=== PATIENT | male | born 2000 ===

== ENCOUNTER → 2023-08-19 | Emergency (ER) | payer BC ==
[~2023-08-19] MED LIST: FAMOTIDINE 20 MG/2 ML VIAL IV ONE; LIDOCAINE VISCOUS 2% 10ML ORAL SOLN ONE; MAGNES/ALUMIN/SIMET 30ML UCUP ONE; NA CHLORIDE 0.9% 1,000 ML ONE; ONDANSETRON 4 MG/2 ML VIAL ONE; PANTOPRAZOLE 40 MG INJ ONE
--- OUTSIDE RECORDS SUMMARY | 2023-08-19 05:47 | XMS REPORT | Continuity of Care Document ---
Author Name Unknown Address [address] [facility] [address] [place] [address] [facility] thconnect Address [address] [facility] [address] [place] [address] Care Team Providers [employer] Name Role Phone Omkar Mcfadden Attending Clinician Unavailable Payers Payer Name Policy Type Policy Number Effective Date Expirati on Date Source [facility] 6 [id number] [facility] Problems Condition Name Condition Details Condition Category Status Onset Date Resolution Date Last Treatment Date Treating Clinician Comments Source [id number] Medical history non-contri butory Problem [facility] [id number] Folliculit is Problem [facility] [id number] GERD without esophagiti s Problem [facility] [id number] Mixed hyperlipid emia Problem [facility] Social History Social Habit Start Date Stop Date Quantity Comments Source History of Tobacco Use [facility] Sex Assigned At [facility] Smoking Status Start Date Stop Date Source Never Smoker [facility] Medications Ordered Medication Name Filled Medication Name Start Date Stop Date Current Medication? Ordering Clinician Indication Dosage Frequency Signature (SIG) Comments Components Source xRocephin 1 gm xRocephin 1 gm 2018-09-29 00:00: 00 No 1g [facility] xRocephin 1 gm xRocephin 1 gm 09-29 00:00: 00 No 1g [facility] xRocephin 1 gm xRocephin 1 gm 2019-0 09-29 00:00: 00 No 1g [facility] Multivitami n Multivitami n No Multivitam in Multivitami n Multivitami n No Multivitam in Multivitami n Multivitami n No Multivitam in Vital Signs Vital Name Observation Time Observation Value Comments S sasha height 2023-01-04 13:10:00 72.5 [in_i] Comm on [facility] weight 2023-01-04 13:10:00 202.6 [lb_av] Co mmon [facility] temperature 2023-01-04 13:10:00 97.4 [degF] Com [facility] bmi 2023-01-04 13:10:00 27.1 kg/m2 Commo n [facility] oximetry 2023-01-04 13:10:00 98 % Commo n [facility] respiratory rate 2023-01-04 13:10:00 16 /min [facility] blood pressure systolic 2023-01-04 13:10:00 126 mm[Hg] [facility] blood pressure diastolic 2023-01-04 13:10:00 80 mm[Hg] [facility] height 2022-12-05 15:00:00 72.5 [in_i] Comm on [facility] weight 2022-12-05 15:00:00 206.3 [lb_av] Co mmon [facility] temperature 2022-12-05 15:00:00 98.0 [degF] Com [facility] bmi 2022-12-05 15:00:00 27.59 kg/m2 Comm on [facility] oximetry 2022-12-05 15:00:00 98 % Commo n [facility] respiratory rate 2022-12-05 15:00:00 18 /min [facility] blood pressure systolic 2022-12-05 15:00:00 115 mm[Hg] [facility] blood pressure diastolic 2022-12-05 15:00:00 65 mm[Hg] [facility] Encounters Start Date/Time End Date/Time Encounter Type Admission Type Attending [facility] Care Facility Care Department Encounter ID Source 2023-01-02 11:13:01 Outpatient Omkar Mcfadden [facility] [id number] [facility] 2022-12-05 14:43:02 [facility] [id number] [facility] 2023-01-08 00:00:00 2023-01-08 00:00:00 (TEL) [facility] [id number] [facility] 2023-01-04 00:00:00 2023-01-04 00:00:00 OFFICE VISIT ESTAB PT LEVEL 3 [facility] [id number] [facility] 2022-12-05 00:00:00 2022-12-05 00:00:00 PREV VISIT NEW AGE 18-39 [facility] [id number] [facility] Results Test Description Test Time Test Comments Results Result Co mments Source CBC W/AUTO [id number] 00:00:00* Test Item Value Reference Range Interpretation Comme nts NUCLEATED RBCS (test code = 05899-7) 0.0 /100 WBC'S See_Comment [Automated messa [employer]imb[employer]] The system which generated this result transmitted reference range: 0.0 /100 WBC'S. The reference range was not used to interpret this result as normal/abnormal. ABSOLUTE EOSINOPHILS (test code = 07987-8) 0.31 K/UL See_Comment [Automated [employer]] The system which generated this result transmitted reference range: 0.00-0.50 K/UL. The reference range was not used to interpret this result as normal/abnormal. ABSOLUTE LYMPHOCYTES (test code = 96686-6) 2.27 K/UL See_Comment [Automated [employer]] The system which generated this result transmitted reference range: 1.00-4.00 K/UL. The reference range was not used to interpret this result as normal/abnormal. ABSOLUTE MONOCYTES (test code = 74906-3) 0.75 K/UL See_Comment [Automated messa ge] The system which generated this result transmitted reference range: 0.2-3.8 K/UL. The reference range was not used to interpret this result as normal/abnormal. ABSOLUTE NEUTROPHILS (test code = 47736-2) 2.97 K/UL See_Comment [Automated messa ge] The system which generated this result transmitted reference range: 1.50-7.50 K/UL. The reference range was not used to interpret this result as normal/abnormal. BASOPHILS (test code = 38892-0) 0.6 % EOSINOPHILS (test code = 05191-7) 4.9 % HEMATOCRIT (test code = 33005-4) 41.3 % See_Comment [Automated messa ge] The system which generated this result transmitted reference range: 40.0-51.0 %. The reference range was not used to interpret this result as normal/abnormal. HEMOGLOBIN (test code = 718-7) 13.6 G/DL See_Comment [Automated messa ge] The system which generated this result transmitted reference range: 13.5-17.0 G/DL. The reference range was not used to interpret this result as normal/abnormal. LYMPHOCYTES (test code = 41959-2) 35.7 % MCH (test code = 15018-5) 25.6 PG See_Comment [Automated messa ge] The system which generated this result transmitted reference range: 25.0-33.0 PG. The reference range was not used to interpret this result as normal/abnormal. MCHC (test code = 00207-2) 32.9 G/DL See_Comment [Automated messa ge] The system which generated this result transmitted reference range: 31.0-36.0 G/DL. The reference range was not used to interpret this result as normal/abnormal. MCV (test code = 88756-9) 77.8 fL See_Comment L [Automated messa ge] The system which generated this result transmitted reference range: 80.0-99.0 fL. The reference range was not used to interpret this result as normal/abnormal. MONOCYTES (test code = 07071-5) 11.8 % NEUTROPHILS (test code = 68193-9) 46.7 % PLATELET COUNT (test code = 74465-1) 301 K/UL See_Comment [Automated messa ge] The system which generated this result transmitted reference range: 130-400 K/UL. The reference range was not used to interpret this result as normal/abnormal. RBC (test code = 00407-4) 5.31 M/UL See_Comment [Automated messa ge] The system which generated this result transmitted reference range: 4.50-6.10 M/UL. The reference range was not used to interpret this result as normal/abnormal. RDW (test code = 79684-2) 13.5 % See_Comment [Automated messa ge] The system which generated this result transmitted reference range: 11.5-15.0 %. The reference range was not used to interpret this result as normal/abnormal. WBC (test code = 85766-8) 6.4 K/UL See_Comment [Automated messa ge] The system which generated this result transmitted reference range: 3.5-11.0 K/UL. The reference range was not used to interpret this result as normal/abnormal. HEMOGLOBIN [id number] 00:00:00* Test Item Value Reference Range Interpretation Comme nts HEMOGLOBIN A1c (test code = 4548-4) 5.4 % See_Comment [Automated messa ge] The system which generated this result transmitted reference range: 4.2-5.6 %. The reference range was not used to interpret this result as normal/abnormal. TSH REFLEX TO FREE [id number] 00:00:00* Test Item Value Reference Range Interpretation Comme nts TSH REFLEX TO FREE T4 (test code = 55634-1) 3.940 UIU/ML See_Comment [Automated messa ge] The system which generated this result transmitted reference range: 0.400-4.100 UIU/ML. The reference range was not used to interpret this result as normal/abnormal. UA, MICROSCOPIC, REFLEX TO [id number] 00:00:00* Test Item Value Reference Range Interpretation Comme nts APPEARANCE (test code = 5767-9) CLEAR CLEAR BACTERIA (test code = 50226-9) NONE SEEN NONE SEEN BILIRUBIN (test code = 5770-3) NEGATIVE NEGATIVE CASTS, HYALINE (test code = 25670-8) NONE SEEN NONE-TRACE COLOR (test code = 5778-6) YELLOW YELLOW-STRAW EPITHELIAL CELLS (test code = 35664-8) 0-5 /HPF See_Comment [Automated messa ge] The system which generated this result transmitted reference range: 0-5 /HPF. The reference range was not used to interpret this result as normal/abnormal. GLUCOSE (test code = 5792-7) NEGATIVE NEGATIVE KETONES (test code = 5797-6) NEGATIVE NEGATIVE LEUKOCYTE ESTERASE (test code = 5799-2) NEGATIVE NEGATIVE NITRITE (test code = 5802-4) NEGATIVE NEGATIVE OCCULT BLOOD (test code = 80430-6) NEGATIVE NEGATIVE pH (test code = 5803-2) 6.0 5.0-9.0 PROTEIN (test code = 88649-0) NEGATIVE NEGATIVE RED BLOOD CELLS (test code = 31865-8) 0-2 /HPF See_Comment [Automated messa ge] The system which generated this result transmitted reference range: 0-2 /HPF. The reference range was not used to interpret this result as normal/abnormal. SPECIFIC GRAVITY (test code = 5811-5) 1.007 1.005-1.035 UROBILINOGEN (test code = 78990-9) 0.2 MG/DL See_Comment [Automated messa ge] The system which generated this result transmitted reference range: <=2.0 MG/DL. The reference range was not used to interpret this result as normal/abnormal. WHITE BLOOD CELLS (test code = 05279-2) 0-5 /HPF See_Comment [Automated messa ge] The system which generated this result transmitted reference range: 0-5 /HPF. The reference range was not used to interpret this result as normal/abnormal. LIPID PANEL WITH REFLEX DIRECT [id number] 00:00:00* Test Item Value Reference Range Interpretation Comme nts CALC LDL CHOL (test code = 53506-3) 127 MG/DL See_Comment H [Automated messa ge] The system which generated this result transmitted reference range: <100 MG/DL. The reference range was not used to interpret this result as normal/abnormal. CHOLESTEROL (test code = 2093-3) 205 MG/DL See_Comment H [Automated messa ge] The system which generated this result transmitted reference range: <200 MG/DL. The reference range was not used to interpret this result as normal/abnormal. HDL CHOLESTEROL (test code = 2085-9) 34 MG/DL See_Comment L [Automated messa ge] The system which generated this result transmitted reference range: >39 MG/DL. The reference range was not used to interpret this result as normal/abnormal. RISK RATIO LDL/HDL (test code = 88750-3) 3.74 RATIO See_Comment H [Automated message] The system which generated this result transmitted reference range: <3.55 RATIO. The reference range was not used to interpret this result as normal/abnormal. TRIGLYCERIDES (test code = 2571-8) 309 MG/DL See_Comment H [Automated messa ge] The system which generated this result transmitted reference range: <150 MG/DL. The reference range was not used to interpret this result as normal/abnormal. COMPREHENSIVE METABOLIC [id number] 00:00:00* Test Item Value Reference Range Interpretation Comme nts ALBUMIN (test code = 1751-7) 4.5 G/DL See_Comment [Automated messa ge] The system which generated this result transmitted reference range: 3.5-5.2 G/DL. The reference range was not used to interpret this result as normal/abnormal. ALKALINE PHOSPHATASE (test code = 6768-6) 118 U/L See_Comment [Automated message] The system which generated this result transmitted reference range: 40-120 U/L. The reference range was not used to interpret this result as normal/abnormal. BILIRUBIN, TOTAL (test code = 1975-2) 0.3 MG/DL See_Comment [Automated message] The system which generated this result transmitted reference range: <=1.2 MG/DL. The reference range was not used to interpret this result as normal/abnormal. BUN (test code = 3094-0) 7 MG/DL See_Comment [Automated messa ge] The system which generated this result transmitted reference range: 6-20 MG/DL. The reference range was not used to interpret this result as normal/abnormal. CALCIUM (test code = 85062-1) 9.8 MG/DL See_Comment [Automated messa ge] The system which generated this result transmitted reference range: 8.5-10.5 MG/DL. The reference range was not used to interpret this result as normal/abnormal. CALC A/G RATIO (test code = 1759-0) 1.8 RATIO See_Comment [Automated messa ge] The system which generated this result transmitted reference range: 1.0-2.6 RATIO. The reference range was not used to interpret this result as normal/abnormal. CALC BUN/CREAT (test code = 3097-3) 7 RATIO See_Comment [Automated messa ge] The system which generated this result transmitted reference range: 6-28 RATIO. The reference range was not used to interpret this result as normal/abnormal. CALC GLOBULIN (test code = 63374-5) 2.5 G/DL See_Comment [Automated messa ge] The system which generated this result transmitted reference range: 1.9-3.7 G/DL. The reference range was not used to interpret this result as normal/abnormal. CARBON DIOXIDE (test code = 1963-8) 28 MEQ/L See_Comment [Automated messa ge] The system which generated this result transmitted reference range: 19-31 MEQ/L. The reference range was not used to interpret this result as normal/abnormal. CHLORIDE (test code = 2075-0) 102 MEQ/L See_Comment [Automated messa ge] The system which generated this result transmitted reference range: 95-107 MEQ/L. The reference range was not used to interpret this result as normal/abnormal. CREATININE (test code = 2160-0) 1.06 MG/DL See_Comment [Automated messa ge] The system which generated this result transmitted reference range: 0.80-1.40 MG/DL. The reference range was not used to interpret this result as normal/abnormal. eGFR (2020 CKD-EPI) (test code = 04026-7) 101 ML/MIN/1.73 See_Comment [Automated message] The system which generated this result transmitted reference range: >60 ML/MIN/1.73. The reference range was not used to interpret this result as normal/abnormal. GLUCOSE (test code = 1558-6) 91 MG/DL See_Comment [Automated messa ge] The system which generated this result transmitted reference range: 70-99 MG/DL. The reference range was not used to interpret this result as normal/abnormal. POTASSIUM (test code = 2823-3) 4.7 MEQ/L See_Comment [Automated messa ge] The system which generated this result transmitted reference range: 3.5-5.4 MEQ/L. The reference range was not used to interpret this result as normal/abnormal. PROTEIN, TOTAL (test code = 2885-2) 7.0 G/DL See_Comment [Automated messa ge] The system which generated this result transmitted reference range: 6.1-8.3 G/DL. The reference range was not used to interpret this result as normal/abnormal. AST (test code = 1920-8) 39 U/L See_Comment [Automated messa ge] The system which generated this result transmitted reference range: 9-50 U/L. The reference range was not used to interpret this result as normal/abnormal. ALT (test code = 1742-6) 77 U/L See_Comment H [Automated messa ge] The system which generated this result transmitted reference range: 5-50 U/L. The reference range was not used to interpret this result as normal/abnormal. SODIUM (test code = 2951-2) 141 MEQ/L See_Comment [Automated messa ge] The system which generated this result transmitted reference range: 133-146 MEQ/L. The reference range was not used to interpret this result as normal/abnormal.
[2023-08-19 07:05] LABS: Absolute Eosinophils 0.4 K/uL (0-0.5); Absolute Lymphocytes (CBC) 1.6 K/uL (0.7-4.9); Basophils % 0.7 % (0-1.3); Eosinophils % 6.7 % (0-4.4); Hematocrit 38.8 % (39.6-49.0); Lymphocytes % 27.2 % (15.3-44.8); MCV 75.7 fL (80-100); MPV 8.5 fL (7.6-11.3); Platelets 247 thou/uL (152-406); RBC Red Blood Cell Count 5.13 M/uL (4.33-5.43)
[2023-08-19 07:37] LABS: Albumin 3.4 g/dL (3.4-5.0); Albumin/Globulin Ratio 0.9 (1.1-1.8); Anion Gap 9.7 mEq/L (5.0-15.0); Bilirubin Total 0.3 mg/dL (0.2-1.0); Globulin 3.8 g/dL (2.3-3.5); Potassium 3.7 mEq/L (3.5-5.1); Protein, Total 7.2 g/dL (6.4-8.2)
--- NOTE | 2023-08-19 09:14 | RAD REPORT ---
EXAM DESCRIPTION: CTAbdomen Pelvis W Contrast - 08/19/2023 7:59 am CLINICAL HISTORY: ABD PAIN COMPARISON: No comparisons TECHNIQUE: CT of the abdomen and pelvis was performed. All CT scans are performed using dose optimization technique as appropriate and may include automated exposure control or mA/KV adjustment according to patient size. FINDINGS: Lower chest: Circumferential thickened distal esophagus likely reflecting esophagitis. Sma ll hiatal hernia. Liver: No acute abnormality or suspicious lesions. Biliary: No biliary ductal dilatation. Stomach: No significant focal abnormality. Duodenum: No significant focal abnormality. Pancreas: No significant abnormality. Spleen: No significant abnormality. Adrenal: No suspicious lesions. Kidney/ureter: No hydronephrosis. No renal calculi. Retroperitoneum: No retroperitoneal adenopathy. Vascular: No aneurysm. Bowel: Nonspecific fluid within small bowel. No bowel obstruction. Normal appendix.. Peritoneum: No ascites or free air. Bladder: Grossly unremarkable. Reproductive: No adnexal masses. Bones: No acute fracture. Other: n/a IMPRESSION: No acute intra-abdominal or pelvic finding. Normal appendix. Incidental findings as note d above.
--- NOTE | 2023-08-19 09:17 | ER ---
Nurse's Notes [facility] Name: Neeraj Ralph Age: 22 yrs Sex: Male : 2000 Arrival Date: 08/19/2023 Time: 05:44 Bed 20 Private MD: Diagnosis: Vomiting;Abdominal pain, unspecified;Weakness;Esophagitis, unspecified Presentation: 08/18 05:58 Chief complaint: Patient states: I keep waking up with stomach pain, I puked and it vc1 went away for a little bit then came back worse. I have horrible indigestion and took some tums and drank some milk. It felt better as long as I am standing. Coronavirus screen: Vaccine status: Patient reports being unvaccinated. Client denies travel out of the [place] in the last 14 days. At this time, the client does not indicate any symptoms associated with coronavirus-19. Ebola Screen: Patient negative for fever greater than or equal to 101.5 degrees Fahrenheit, and additional compatible Ebola Virus Disease symptoms Patient denies exposure to infectious person. Patient denies travel to an Ebola-affected area in the 21 days before illness onset. No symptoms or risks identified at this time. Initial Sepsis Screen: Does the patient meet any 2 criteria? No. Patient's initial sepsis screen is negative. Does the patient have a suspected source of infection? No. Patient's initial sepsis screen is negative. Risk Assessment: Do you want to hurt yourself or someone else? Patient reports no desire to harm self or others. Onset of symptoms was August 19, 2023. 05:58 Method Of Arrival: Ambulatory vc1 05:58 Acuity: JAIRO 4 vc1 Triage Assessment: 06:07 General: Appears in no apparent distress. uncomfortable, Behavior is calm, cooperative, vc1 appropriate for age, quiet. Pain: Complains of pain in epigastric area Pain radiates to umbilical area and suprapubic area Pain currently is 4 out of 10 on a pain scale. at worst was 8 out of 10 on a pain scale. Quality of pain is described as burning, radiating, Pain began suddenly, Is continuous, Alleviated by standing up, tums, milk. Aggravated by laying flat Noted to be crying. EENT: No deficits noted. No signs and/or symptoms were reported regarding the EENT system. Neuro: Level of Consciousness is awake, alert, obeys commands, Oriented to person, place, time, situation, Appropriate for age. Cardiovascular: No deficits noted. Respiratory: Airway is patent Respiratory effort is even, unlabored, Respiratory pattern is regular, symmetrical, Breath sounds are clear. GI: Abdomen is flat, non-distended, Bowel sounds present X 4 quads. Reports lower abdominal pain, upper abdominal pain, epigastric pain, indigestion, Pain is 4 out of 10 on a pain scale. :. : No deficits noted. No signs and/or symptoms were reported regarding the genitourinary system. Derm: No deficits noted. No signs and/or symptoms reported regarding the dermatologic system. Musculoskeletal: No deficits noted. No signs and/or symptoms reported regarding the musculoskeletal system. Historical: - Allergies: 06:05 No Known Allergies; vc1 - Home Meds: 06:05 None [Active]; vc1 - PMHx: 06:05 "heart burn"; vc1 - PSHx: 06:05 None; vc1 - Immunization history:: Client reports having NOT received the Covid vaccine. - Social history:: Smoking status: Patient denies any tobacco usage or history of. Screenin:11 Abuse screen: Denies threats or abuse. Nutritional screening: No deficits noted. vc1 Tuberculosis screening: No symptoms or risk factors identified. 06:11 [facility] ED Fall Risk Assessment (Adult) History of falling in the last 3 months, vc1 including since admission No falls in past 3 months (0 pts) Confusion or Disorientation No (0 pts) Intoxicated or Sedated No (0 pts) Impaired Gait No (0 pts) Mobility Assist Device Used No (0 pt) Altered Elimination No (0 pt) Score/Fall Risk Level 0 - 2 = Low Risk Oriented to surroundings, Maintained a safe environment, Educated pt \\T\\ family on fall prevention, incl call for assistance when getting out of bed. Assessment: 07:30 General: Appears in no apparent distress. comfortable, well groomed, Behavior is calm, ph cooperative, appropriate for age. Pain: Complains of pain in epigastric area. Derm: Skin is pink, warm \\T\\ dry. Vital Signs: 05:58 BP 131 / 84; Pulse 88; Resp 14; Temp 97.8; Pulse Ox 97% ; Weight 97.52 kg; Height 5 ft. vc1 11 in. ; Pain 4/10; 08:20 BP 132 / 87; Pulse 65; Resp 18; Pulse Ox 98% on R/A; ph 09:30 BP 122 / 78; Pulse 64; Resp 18; Temp 97.9; Pulse Ox 98% on R/A; ph 05:58 Body Mass Index 29.99 (97.52 kg, 180.34 cm) vc1 05:58 Pain Scale: Adult vc1 ED Course: 05:48 Patient arrived in ED. gm2 05:51 Karlo Posadas DO is Attending Physician. ms3 06:05 Triage completed. vc1 06:06 Arm band placed on left wrist. vc1 06:07 Patient has correct armband on for positive identification. Bed in low position. Call vc1 light in reach. Pulse ox on. NIBP on. 06:14 Rubi Leigh RN is Primary Nurse. jw7 06:45 Initial lab(s) drawn, by nj, sent to lab. Inserted saline lock: 22 gauge in right jw7 forearm, using aseptic technique. Blood collected. 06:54 Attending Physician role handed off by Karlo Posadas DO ms3 06:54 Lawrence Mccracken MD is Attending Physician. ms3 07:06 Report given to ELVIA NICOLE. jw7 07:[address] via wheelchair. hb 08:01 CT Abd/Pelvis - IV Contrast Only In Process Unspecified. EDMS 08:51 US Abdomen Limited In Process Unspecified. EDMS 09:16 Levar Valentino MD is Referral Physician. domitila 10:10 No provider procedures requiring assistance completed. IV discontinued, intact, ph bleeding controlled, No redness/swelling at site. Pressure dressing applied. Administered Medications: 06:58 Drug: Famotidine IVP 20 mg IVP once; dilute with 10 mL 0.9% NaCl; give over 2 minutes jw7 Route: IVP; Site: right forearm; 10:12 Follow up: Response: No adverse reaction ph 06:58 Drug: GI Cocktail without - (Maalox PO 30 ml, Lidocaine Mucous Membrane 2 % 15 jw7 ml) PO once Route: PO; 10:12 Follow up: Response: No adverse reaction ph 06:59 Drug: NS 0.9% IV 1000 ml IV at 1 bolus Per protocol; 1000 mL bolus Route: IV; Rate: 1 jw7 bolus; Site: right forearm; 08:30 Follow up: Response: No adverse reaction; IV Status: Completed infusion ph 06:59 Drug: Ondansetron IVP 4 mg IVP once; over 2 minutes Route: IVP; Site: right forearm; jw7 10:12 Follow up: Response: No adverse reaction ph 09:30 Drug: Pantoprazole IVP 40 mg IVP once Route: IVP; Site: right antecubital; ph 10:12 Follow up: Response: No adverse reaction ph 10:09 Not Given (Other Intervention Used): ns 0.9% 1000 ml IV at 1 bolus Per protocol; 1000 ph mL bolus Medication: 06:07 VIS not applicable for this client. vc1 Outcome: 09:17 Discharge ordered by . domitila 10:11 Discharged to home ambulatory, with significant other, ph 10:11 Condition: good 10:11 Discharge instructions given to patient, Instructed on discharge instructions, follow up and referral plans. medication usage, Demonstrated understanding of instructions, follow-up care, medications, Prescriptions given X 4, 10:12 Patient left the ED. ph Signatures: Dispatcher [employer] EDMS Lawrence Mccracken MD MD cha Hall, Patricia, RN RN Nayla Qiu, RN RN Karlo Hazel DO DO ms3 Gabriela Shin RN RN vc1 Rubi Leigh RN RN jw7 Mitchell, Ginger 2
--- NOTE | 2023-08-19 09:17 | EDPHYS ---
Physician Documentation [facility] Name: Neeraj Ralph Age: 22 yrs Sex: Male : 2000 Arrival Date: 08/19/2023 Time: 05:44 Bed 20 Private MD: ED Physician Lawrence Mccracken HPI: 08/18 05:59 This 22 yrs old Male presents to ER via Unassigned with complaints of Weakness, ms3 Abdominal Pain, Nausea/Vomiting. 05:59 22-year-old male with no past medical history presents to the emergency department for ms3 generalized abdominal pain that began tonight. Patient describes the pain as burning/indigestion. Patient took Tums with some relief. Patient states he vomited x 1 gave him relief for approximately 30 minutes. Patient endorses nausea. Patient denies fever, chills, sick contacts. Patient states his discomfort is a 4/10 located generally throughout his abdomen.. Historical: - Allergies: 06:05 No Known Allergies; vc1 - Home Meds: 06:05 None [Active]; vc1 - PMHx: 06:05 "heart burn"; vc1 - PSHx: 06:05 None; vc1 - Immunization history:: Client reports having NOT received the Covid vaccine. - Social history:: Smoking status: Patient denies any tobacco usage or history of. ROS: 05:59 Constitutional: Negative for fever, and chills. Neck: Negative for injury, pain, and ms3 swelling, Cardiovascular: Negative for chest pain, and palpitations. 05:59 Respiratory: Negative for shortness of breath, cough, wheezing, and pleuritic chest pain, MS/Extremity: Negative for injury and deformity, Skin: Negative for injury, rash, and discoloration, 05:59 Abdomen/GI: Positive for abdominal pain, nausea and vomiting, Exam: 05:59 Constitutional: This is a well developed, well nourished patient who is awake, alert, ms3 and in no acute distress. Head/Face: Normocephalic, atraumatic. Neck: Trachea midline, no cervical lymphadenopathy. Supple, full range of motion without nuchal rigidity, or vertebral point tenderness. No Meningismus. Chest/axilla: Normal chest wall appearance and motion. Nontender with no deformity. Cardiovascular: Regular rate and rhythm with a normal S1 and S2. No gallops, murmurs, or rubs. Normal PMI, no JVD. No pulse deficits. Respiratory: Lungs have equal breath sounds bilaterally, clear to auscultation and percussion. No rales, rhonchi or wheezes noted. No increased work of breathing, no retractions or nasal flaring. Skin: Warm, dry with normal turgor. Normal color with no rashes, no lesions, and no evidence of cellulitis. 05:59 MS/ Extremity: Pulses equal, no cyanosis. Neurovascular intact. Full, normal range of motion. 05:59 Abdomen/GI: Inspection: abdomen appears normal, Bowel sounds: normal, Palpation: moderate abdominal tenderness, in the right upper quadrant and right lower quadrant, Vital Signs: 05:58 BP 131 / 84; Pulse 88; Resp 14; Temp 97.8; Pulse Ox 97% ; Weight 97.52 kg; Height 5 ft. vc1 11 in. ; Pain 4/10; 08:20 BP 132 / 87; Pulse 65; Resp 18; Pulse Ox 98% on R/A; ph 09:30 BP 122 / 78; Pulse 64; Resp 18; Temp 97.9; Pulse Ox 98% on R/A; ph 05:58 Body Mass Index 29.99 (97.52 kg, 180.34 cm) vc1 05:58 Pain Scale: Adult vc1 MDM: 05:58 Patient medically screened. ms3 06:53 Transition of care: After a detail discussion of the patient's case, care is ms3 transferred to Lawrence Mccracken MD. 07:08 Data reviewed: vital signs, nurses notes, lab test result(s), radiologic studies, CT domitila scan. Consideration of Admission/Observation Escalation of care including admission/observation considered. I considered the following discharge prescriptions or medication management in the emergency department Medications were administered in the Emergency Department. See AUG. 08/18 05:59 Order name: CBC with Diff; Complete Time: 07:06 3 08/18 05:59 Order name: CMP; Complete Time: 07:47 ms3 08/18 05:59 Order name: Lipase; Complete Time: 07:47 ms3 08/18 05:59 Order name: CT Abd/Pelvis - IV Contrast Only ms3 08/18 07:48 Order name: US Abdomen Limited domitila 08/18 05:59 Order name: IV Saline Lock; Complete Time: 06:59 ms3 08/18 05:59 Order name: Labs collected and sent; Complete Time: 06:59 ms3 Administered Medications: 06:58 Drug: Famotidine IVP 20 mg IVP once; dilute with 10 mL 0.9% NaCl; give over 2 minutes jw7 Route: IVP; Site: right forearm; 10:12 Follow up: Response: No adverse reaction ph 06:58 Drug: GI Cocktail without - (Maalox PO 30 ml, Lidocaine Mucous Membrane 2 % 15 jw7 ml) PO once Route: PO; 10:12 Follow up: Response: No adverse reaction ph 06:59 Drug: NS 0.9% IV 1000 ml IV at 1 bolus Per protocol; 1000 mL bolus Route: IV; Rate: 1 jw7 bolus; Site: right forearm; 08:30 Follow up: Response: No adverse reaction; IV Status: Completed infusion ph 06:59 Drug: Ondansetron IVP 4 mg IVP once; over 2 minutes Route: IVP; Site: right forearm; jw7 10:12 Follow up: Response: No adverse reaction ph 09:30 Drug: Pantoprazole IVP 40 mg IVP once Route: IVP; Site: right antecubital; ph 10:12 Follow up: Response: No adverse reaction ph 10:09 Not Given (Other Intervention Used): ns 0.9% 1000 ml IV at 1 bolus Per protocol; 1000 ph mL bolus Disposition Summary: 08/19/23 09:17 Discharge Ordered Notes: Location: Home domitila Problem: new domitila Symptoms: have improved domitila Condition: Stable domitila Diagnosis - Vomiting domitila - Abdominal pain, unspecified domitila - Weakness domitila - Esophagitis, unspecified domitila Followup: domitila - With: Private Physician - When: 2 - 3 days - Reason: Recheck today's complaints, Continuance of care, Re-evaluation by your physician Followup: domitila - With: Levar Valentino MD - When: 2 - 3 days - Reason: Recheck today's complaints, Re-evaluation by your physician Discharge Instructions: - Discharge Summary Sheet domitila - Abdominal Pain, Adult domitila - Food Choices for Gastroesophageal Reflux Disease, Adult domitila - Gastroesophageal Reflux Disease, Adult domitila - Weakness domitila - Abdominal Pain, Adult, [id number] domitila - Gastroesophageal Reflux Disease, Adult, [id number] domitila - Weakness, [id number] domitila - Food Choices for Gastroesophageal Reflux Disease, Adult, [id number] - Vomiting, Adult [facility] Forms: - Medication Reconciliation Form domitila - Thank You Letter domitila - Antibiotic Education domitila - Prescription Opioid Use domitila - Patient Portal Instructions domitila - Leadership Thank You Letter domitila - Work release form eb Prescriptions: - ondansetron 4 mg Oral Tablet,disintegrating - take 1 tablet ORAL route every 6-8 hours as needed for nausea and vomiting; 20 domitila tablet; Refills: 0, Product Selection Permitted - Carafate 1 gram Oral tablet - take 1 tablet ORAL route 4 times per day take on an empty stomach, beginning on domitila waking and last dose at bedtime; 50 tablet; Refills: 0, Product Selection Permitted - Protonix 40 mg Oral Tablet - take 1 tablet ORAL route once daily; 30 tablet; Refills: 0, Product Selection [facility] Permitted - dicyclomine 20 mg Oral tablet - take 1 tablet ORAL route 4 times per day; 28 tablet; Refills: 0, Product domitila Selection Permitted Signatures: Dispatcher [employer] Lawrence Velasco MD MD cha Hall, Patricia, RN RN Karlo Vaughn DO DO ms3 Gabriela Shin RN RN vc1 Rubi Leigh RN RN jw7
--- NOTE | 2023-08-19 09:23 | RAD REPORT ---
EXAM DESCRIPTION: US - Abdomen Exam Limited - 08/19/2023 8:50 am CLINICAL HISTORY: ABD PAIN COMPARISON: Abdomen Pelvis W Contrast dated 08/19/2023 FINDINGS: The gallbladder demonstrates no gallstones. No pericholecystic fluid or gallbladder wall t hickening. The common bile duct is normal measuring 4 mm. 6 mm polyp noted. The liver demonstrates no findings of intrahepatic biliary dilatation. IMPRESSION: Negative for cholelithiasis or acute cholecystitis. 6 mm gallbladder polyp. Consider 12 month follow-up ultrasound.
[2023-08-19 10:24] VITALS: BP 122/78; TEMP 97.9; O2SAT 98
== END ==
LOC: ER 05:44
DX: R11.10 Vomiting, unspecified (principal); K20.90 Esophagitis, unspecified without bleeding; R10.84 Generalized abdominal pain; R53.1 Weakness; Z28.310 Unvaccinated for COVID-19
CPT/HCPCS: 85025; 36415; 83690; 80053; 74177; 76705; Q9967; C9113; J2405; J7030; 99285